=== PATIENT | male | born 1970 | race Caucasian/White ===

== ENCOUNTER 2021-07-25 13:42 | Emergency (ER) | payer SELFPAY ==
--- NOTE | ~2021-07-25 | US_ITS ---
EXAMINATION: US venous doppler [facility] DATE: 07/25/2021 15:32 INDICATION: Left lower limb swelling and pain. TECHNIQUE: Grayscale images without and with compression and Doppler images of the left lower extremi ty veins were obtained. COMPARISON: None FINDINGS: The left common femoral vein, profunda femoral vein, femoral vein, popliteal vein, peroneal vein, pos terior tibial veins, gastrocnemius vein, lesser and greater saphenous veins are patent. IMPRESSION: 1. Patent left lower extremity veins. No evidence of deep venous thrombosis. Reviewed, dictated and finalized at location K.
--- NOTE | ~2021-07-25 | XR_ITS ---
EXAMINATION: XR chest 1V portable DATE: 07/25/2021 15:25 INDICATION: Difficulty breathing. TECHNIQUE: A single frontal view of the chest was obtained. COMPARISON: None. FINDINGS: There is no pneumonia, pleural effusion, or pneumothorax. The heart size is normal. IMPRESSION: 1. No acute cardiopulmonary disease. Reviewed, dictated and finalized at location A.
[2021-07-25 13:45] VITALS: BP 168/89; PULSE 101; RESP 20; TEMP 36.3; O2SAT 98
--- NOTE | 2021-07-25 14:37 | ECG_ITS ---
Measurements Intervals [place] Rate: 92 P: 50 AK: 168 QRS: -3 QRSD: 99 T: 41 QT: 382 QTc: 473 Interpretive Statements SINUS RHYTHM POSSIBLE LEFT ATRIAL ENLARGEMENT LOW QRS VOLTAGE IN PRECORDIAL LEADS BORDERLINE ECG NO PREVIOUS ECG AVAILABLE FOR COMPARISON Electronically Signed On 07-25-2021 15:02:25 CDT by Rito Dias M.D.
--- NOTE | 2021-07-25 14:45 | ED.GENADULT ---
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 Does also endorse a little bit of shortness of breath with exertion but not too bad, no chest pain, no nausea or vomiting. Does also state that his left lower leg has been bothering him, he has had a history of surgery in the past. No history of blood clots. He states that while he was getting into the car, and driving, he noticed he was developing some slight paresthesias in his left upper extremity, no weakness, and this was what finally prompted him to come in. Related Data Allergies Allergy/AdvReac Type Severity Reaction Status Date / Time No Known Allergies Allergy Verified 07/25/21 15:02 Review of Systems Review of Systems: CONST: No fever. HEENT: No sore throat C/V: No chest pain RESP: Very mild shortness of breath GI: No nausea or vomiting : No dysuria. M/S: Lower extremity swelling SKIN: No rash. NEURO: [No headache; slight paresthesias from his left shoulder down to fingers, no weakness] PSYCH: [No depression] [facility] Past Medical History Medical History (Updated 07/25/21 @ 16:19 by Rosa Isela Bennett MD) Cirrhosis Hemochromatosis Surgical History Surgical History (Updated 07/25/21 @ 14:48 by Rosa Isela Bennett MD) History of surgery on lower extremity Exam Narrative: EXAMINATION OF ORGAN SYSTEMS/BODY AREAS: Constitutional: Vital signs per nursing GENERAL:[No acute distress, non-toxic appearing.] HEAD: Normal with no signs of head trauma. EYES: EOMI, conjunctiva normal ENT: Hearing grossly intact LUNGS: Nonlabored breathing. HEART: Minimally tachycardic ABD: [Soft], [nontender to palpation] EXT: Normal range of motion, bilateral lower extremity edema SKIN: [No rashes or lesions.] NEURO: [Alert and oriented x 3. Normal strength bilateral upper extremities, endorses paresthesias from left deltoid down] PSYCH: Normal affect Course Vital Signs Vital signs: Vital Signs Temperature 97.4 F L 07/25/21 13:45 Pulse Rate 101 H 07/25/21 13:45 Respiratory Rate 20 07/25/21 13:45 Blood Pressure 168/89 H 07/25/21 13:45 Pulse Oximetry 98 07/25/21 13:45 Oxygen Delivery Room Air 07/25/21 13:45 Temperature 97.4 F L 07/25/21 13:45 Pulse Rate 96 07/25/21 15:06 Respiratory Rate 19 07/25/21 15:06 Blood Pressure 136/91 H 07/25/21 15:06 Pulse Oximetry 96 07/25/21 15:06 Oxygen Delivery Room Air 07/25/21 13:45 Medical Decision Making MDM Narrative Medical decision making narrative: 51-year-old male presenting with increased lower extremity edema, and some paresthesias in his left arm, vital signs stable here, exam shows bilateral pedal edema that is nonpitting, no obvious increased welling of the left lower extremity compared to the right, clear lungs without labored respirations, normal strength upper and lower extremities. Differential includes volume overload possibly from cirrhosis, DVT, very unlikely CVA given the distribution of the symptoms. All labs within acceptable limits other than elevated LFTs and bilirubin which is likely chronic from his liver disease, and chest x-ray and DVT of lower extremity was unremarkable. On reevaluation, his paresthesias have resolved, he states that he just feels slightly tired. I do feel patient would likely merit close follow-up, he states that he is going to go see his primary care doctor in the next couple of days as soon as he gets home, I
[2021-07-25 15:01] LABS: Glucose Point of Care 105 mg/dl (65-105)
[2021-07-25] MEDS: Please add drug allergy info to patient profile. XX (15:04)
[2021-07-25 15:06] VITALS: BP 136/91; PULSE 96; RESP 19; O2SAT 96
[2021-07-25 15:13] LABS: Basophils Absolute Auto 0.1 K/mm3 (0.0-0.1); Basophils Percent Auto 1.2 % (0.2-1.2); Eosinophils Absolute Auto 0.2 K/mm3 (0-0.3); Hematocrit 41.7 % (42.0-52.0); Immature Granulocyte Absolute 0.02 K/mm3 (0.00-0.031); Immature Granulocyte Percent A 0.5 % (0-0.5); Immature Platelet Fraction Pct 6.3 % (0.9-11.2); Lymphocytes Absolute Auto 0.73 K/mm3 (0.9-3.2); Lymphocytes Percent Auto 17.4 % (18.3-44.2); Mean Corpuscular HGB Conc 33.6 g/dl (32-36); Mean Corpuscular Volume 95.4 fl (80-100); Mean Platelet Volume 10.8 fl (7.4-10.4); Monocytes Absolute Auto 0.5 K/mm3 (0.1-0.6); Monocytes Percent Auto 11.7 % (2.6-8.5); Neutrophils Absolute Auto 2.7 K/mm3 (1.3-6.7); Neutrophils Percent Auto 64.2 % (45.5-73.1); Platelet Count Result 75 k/mm3 (150-375); Red Blood Count 4.37 M/mm3 (4.6-6.20); Red Cell Distribution Width 15.4 % (11.5-14.5); White Blood Count 4.2 K/mm3 (4.5-10.0)
[2021-07-25 15:23] LABS: INR 1.3; Prothrombin Time 15.7 Seconds (11.1-14.7)
[2021-07-25 15:24] LABS: Partial Thromboplastin Time 32.5 SECONDS (22.3-36.8)
[2021-07-25 15:32] LABS: Alanine Aminotransferase 44 U/L (6-50); Albumin Level 3.5 g/dL (3.5-5.1); Alkaline Phosphatase 186 U/L (38-126); Anion Gap 8 mmol/L (8-16); Aspartate Amino Transferase 112 U/L (17-59); Bilirubin,Total 5.5 mg/dL (0.2-1.3); Blood Urea Nitrogen 8 mg/dL (9-20); Carbon Dioxide 23 mmol/L (22-30); Chloride 106 mmol/L (98-107); Estimated CRCL calculation 182 ml/min; Estimated Glomerular Filt Rate > 60; Glucose 100 mg/dL (65-110); Potassium 3.7 mmol/L (3.4-5.0); Sodium 137 mmol/L (137-145)
[2021-07-25 15:45] LABS: NT Pro B Type Natriuretic Pept 98 pg/mL (5-100)
[2021-07-25] MEDS: FUROSEMIDE INJ 40 MG/4 ML VIAL IV PUSH (16:03)
== END 2021-07-25 17:04 | disposition home or self-care (01) ==
PROVIDERS: Emergency Provider Emergency Medicine
DX: R60.0 Localized edema (principal); R20.2 Paresthesia of skin; K74.60 Unspecified cirrhosis of liver; E83.119 Hemochromatosis, unspecified; R94.31 Abnormal electrocardiogram [ECG] [EKG]
CPT/HCPCS: 36415; 71045; 80053; 82948; 83880; 85025; 85055; 85610; 85730; 93005; 93971; 96374; 99284; J1940